=== PATIENT | male | born 1995 | race Two or more races ===

== ENCOUNTER 2021-11-29 08:50 | Emergency (ER) | payer MEDICAID, SELFPAY ==
--- NOTE | 2021-11-29 08:58 | XRR_ITS ---
PROCEDURE INFORMATION: Exam: XR Chest Exam date and time: 11/29/2021 9:49 AM Age: 25 years old Clinical indication: Fever TECHNIQUE: Imaging protocol: Radiologic exam of the chest. Views: 1 view. COMPARISON: No relevant prior studies available. FINDINGS: Lungs: Unremarkable. No consolidation. Pleural spaces: Unremarkable. No pleural effusion. No pneumothorax. Heart/Mediastinum: Unremarkable. No cardiomegaly. Bones/joints: Unremarkable. XR/XR chest 1V portable [id number] IMPRESSION: No acute findings.
[2021-11-29 09:09] VITALS: BP 104/64; PULSE 103; RESP 15; TEMP 39.4; O2SAT 99; BMI 23.0
[2021-11-29] MEDS: acetaminophen 325 mg Tablet 650 MG PO (09:23)
[2021-11-29 11:05] LABS: Basophils # 0.1 10^3/uL (0.0-0.1); Basophils % 0.4 %; Eosinophils % 0.1 %; Hematocrit 43.5 % (42.0-52.0); Hemoglobin 14.6 g/dL (11.7-16.6); Lymphocytes # 1.6 10^3/uL (0.8-4.8); Lymphocytes % 13.4 %; Mean Corpuscular HGB Conc 33.6 g/dL (30.0-36.0); Mean Corpuscular Hemoglobin 30.2 pg (28.0-34.0); Mean Corpuscular Volume 90.1 fl (80-94); Monocytes # 1.1 10^3/uL (0.2-0.9); Monocytes % 9.3 %; Neutrophils # 9.14 10^3/uL (1.8-7.7); Neutrophils % 76.3 %; Nucleated Red Blood Cells % 0 %; Platelet Count 196 10^3/cmm (130-400); Red Blood Count 4.83 10^6/uL (4.1-5.3); Red Cell Distribution Width 12.6 % (12.1-15.1)
[2021-11-29 11:21] LABS: Alanine Aminotransferase 21 U/L (0-41); Albumin Level 4.1 g/dL (3.5-5.2); Alkaline Phosphatase 92 U/L (40-130); Anion Gap 14.3 (5-19); Aspartate Amino Transferase 17 U/L (0-40); Blood Urea Nitrogen 5 mg/dL (6-20); Carbon Dioxide 25 mmol/L (22-29); Chloride 100 mmol/L (98-107); Globulin 3.3 g/dL (1.3-4.6); Glomerular Filtration Rate 117.8 mL/min (90-130); Glucose 108 mg/dL (65-115); Lipase 17 U/L (13-60); Osmolality Calculated 280 mOsm/kg (285-295); Potassium 3.3 mmol/L (3.5-5.1); Sodium 136 mmol/L (136-145); Total Bilirubin 0.5 mg/dL (0.15-1.2); Total Protein 7.4 g/dL (6.6-8.7)
[2021-11-29 11:51] LABS: Bilirubin Urine 1+ (Negative); Blood Urine Neg (Negative); Glucose Urine UA Norm (Normal); Ketones Urine 1+ (Negative); Nitrate Urine Negative (Negative); Protein Urine Trace (Negative); Specific Gravity, Urine 1.015 (1.005-1.030); Urine Appearance Clear (CLEAR); Urine Color Yellow (Yellow); pH Urine 5 (5-7)
[2021-11-29 11:52] LABS: Add Urine Culture? No; Add Urine Microscopic? YES; Bacteria Urine 1+ /hpf; Leukocyte Esterase Urine Negative (Negative); Mucus Urine 2+ /hpf; Urobilinogen Urine Norm (Negative)
[2021-11-29 12:22] VITALS: BP 103/63; PULSE 76; RESP 16; TEMP 37; O2SAT 99
--- NOTE | 2021-11-29 12:24 | W.ED.COVID ---
HPI - COVID General: Chief Complaint: Nausea/Vomiting/Diarrhea Stated Complaint: fever, n/v Time Seen by Provider: 11/29/21 11:22 History of Present Illness: 25-year-old male presents emergency room with fever temp 102.9 initially. He also has myalgias slight cough. Symptoms began yesterday. He has had some diarrhea with it as well. He has had some headache generalized malaise. No other else in his home has been sick his cough is dry nonproductive he denies any fever sweats chills mild abdominal discomfort. No anosmia. MD complaint: has COVID symptoms Prior covid testing: no COVID 19 common symptoms: positive fever(s), chills, cough, non-productive cough, dyspnea, fatigue, body aches, headache(s) and diarrhea; negative throat pain or nasal congestion COVID 19 other sytmptoms: negative chest pain Onset (ago): day(s) (1) Severity: mild Treatment prior to arrival: none COVID Results: No Data to Display Review of Systems Const: Reports: fever(s), chills, body aches and fatigue ENMT: Denies: throat pain, ear or mastoid pain, nasal discharge or nasal congestion Card: Denies: chest pain, edema, dyspnea on exertion or orthopnea Resp: Reports: dyspnea and non-productive cough GI: Reports: diarrhea : Denies: flank pain, dysuria, urinary frequency or urinary urgency Skin/Breast: Denies: rash or pruritus Neuro: Reports: headache(s) PFS ED PFSH: Medical History (Updated 11/29/21 @ 12:28 by Jone Pryor DO) No significant past medical history Surgical History (Updated 11/29/21 @ 12:26 by Jone Pryor DO) No significant past surgical history Social History (Updated 11/29/21 @ 12:26 by Jone Pryor DO) Smoking and tobacco status: never smoked Physical Exam Const: COMMON NORMALS: no acute distress GENERAL APPEARANCE: cooperative and comfortable ORIENTATION/CONSCIOUSNESS: Yes awake, Yes oriented to person, Yes oriented to place and Yes oriented to time HENMT: COMMON NORMALS: normocephalic, atraumatic and hearing grossly normal bilaterally HEAD & SCALP: normocephalic and atraumatic Resp: COMMON NORMALS: normal respiratory effort, No retractions, No use of accessory muscles and clear to auscultation bilaterally AUSCULTATION: clear to auscultation bilaterally Cardio: COMMON NORMALS: regular rate, regular rhythm and No murmurs present (Cardio) RATE: regular rate RHYTHM: regular rhythm GI: COMMON NORMALS: Soft to palpation and No hepatosplenomegaly present AUSCULTATION: Yes normoactive bowel sounds PALPATION: Yes Soft to palpation, No Tenderness to palpation present (GI), No Guarding due to palpation present (GI) and Yes No hepatosplenomegaly present Extremity: COMMON NORMALS: normal to inspection, capillary refill normal, no clubbing, cyanosis or edema, no calf tenderness and no pedal edema Neuro: SENSORIUM/ORIENTATION: Yes oriented to person, Yes oriented to place and Yes oriented to time Skin: COMMON NORMALS: no rashes or lesions noted GENERAL SKIN EXAM: no rashes or lesions noted Course Vital Signs: Vital signs: Vital Signs Temperature 98.6 F 11/29/21 12:22 Pulse Rate 76 11/29/21 12:22 Respiratory Rate 16 11/29/21 12:22 Blood Pressure 103/63 11/29/21 12:22 Pulse Oximetry 99 11/29/21 12:22 Oxygen Delivery Me thod 11/29/21 12:22 MDM - COVID Medical Decision Making Suspect patient has COVID based on his symptoms we will discharge him home and follow-up with results when they are available swab to be done prior to discharge. Supportive cares. Medical Records I reviewed the patient's medical records. Lab Data I reviewed the patient's lab results. : 11/29/21 10:55 11/29/21 10:55 Radiology Impressions Chest X-Ray 11/29/21 08:58 IMPRESSION: No acute findings. Laboratory Results WBC 12.0 10^3/uL (4.0-10.0) H 11/29/21 10:55 RBC 4.83 10^6/uL (4.1-5.3) 11/29/21 10:55 Hgb 14.6 g/dL (11.7-16.6) 11/29/21 10:55 Hct 43.5 % (42.0-52.0) 11/29/21 10:55 MCV 90.1 fl (80-94) 11/29/21 10:55 MCH 30.2 pg (28.0-34.0) 11/29/21 10:55 MCHC 33.6 g/dL (30.0-36.0) 11/29/21 10:55 RDW 12.6 % (12.1-15.1) 11/29/21 10:55 Plt Count 196 10^3/cmm (130-400) 11/29/21 10:55 MPV 10.0 fL (7.4-10.4) 11/29/21 10:55 Neut % (Auto) 76.3 % 11/29/21 10:55 Lymph % (Auto) 13.4 % 11/29/21 10:55 [place] % (Auto) 9.3 % 11/29/21 10:55 Eos % (Auto) 0.1 % 11/29/21 10:55 Baso % (Auto) 0.4 % 11/29/21 10:55 Neut # (Auto) 9.14 10^3/uL (1.8-7.7) H 11/29/21 10:55 Lymph # (Auto) 1.6 10^3/uL (0.8-4.8) 11/29/21 10:55 [place] # (Auto) 1.1 10^3/uL (0.2-0.9) H 11/29/21 10:55 Eos # (Auto) 0.0 10^3/uL (0.0-0.8) 11/29/21 10:55 Baso # (Auto) 0.1 10^3/uL (0.0-0.1) 11/29/21 10:55 Nucleated RBC % (auto) 0 % 11/29/21 10:55 Nucleated RBCs # 0.0 /100WBC 11/29/21 10:55 Sodium 136 mmol/L (136-145) 11/29/21 10:55 Potassium 3.3 mmol/L (3.5-5.1) L 11/29/21 10:55 Chloride 100 mmol/L (98-107) 11/29/21 10:55 Carbon Dioxide 25 mmol/L (22-29) 11/29/21 10:55 Anion Gap 14.3 (5-19) 11/29/21 10:55 BUN 5 mg/dL (6-20) L 11/29/21 10:55 Creatinine 0.8 mg/dL (0.7-1.2) 11/29/21 10:55 GFR Calculation 117.8 mL/min (90-130) 11/29/21 10:55 Glucose 108 mg/dL (65-115) 11/29/21 10:55 Calculated Osmolality 280 mOsm/kg (285-295) L 11/29/21 10:55 Calcium 9.0 mg/dL (8.5-10.5) 11/29/21 10:55 Total Bilirubin 0.5 mg/dL (0.15-1.2) 11/29/21 10:55 AST 17 U/L (0-40) 11/29/21 10:55 ALT 21 U/L (0-41) 11/29/21 10:55 Alkaline Phosphatase 92 U/L (40-130) 11/29/21 10:55 Total Protein 7.4 g/dL (6.6-8.7) 11/29/21 10:55 Albumin 4.1 g/dL (3.5-5.2) 11/29/21 10:55 Globulin 3.3 g/dL (1.3-4.6) 11/29/21 10:55 Lipase 17 U/L (13-60) 11/29/21 10:55 Urine Color Yellow (Yellow) 11/29/21 11:23 Urine Appearance Clear (CLEAR) 11/29/21 11:23 Urine pH 5 (5-7) 11/29/21 11:23 Ur Specific [place] 1.015 (1.005-1.030) 11/29/21 11:23 Urine Protein Trace (Negative) 11/29/21 11:23 Urine Glucose (UA) Norm (Normal) 11/29/21 11:23 Urine Ketones 1+ (Negative) H 11/29/21 11:23 Urine Blood Neg (Negative) 11/29/21 11:23 Urine Nitrate Negative (Negative) 11/29/21 11:23 Urine Bilirubin 1+ (Negative) H 11/29/21 11:23 Urine Urobilinogen Norm mg/dL (Negative) 11/29/21 11:23 Ur Leukocyte Esterase Negative (Negative) 11/29/21 11:23 Urine RBC None /hpf (0-2) 11/29/21 11:23 Urine WBC 5-10 /hpf (0-5) H 11/29/21 11:23 Ur Squamous Epith Cells None /hpf (0-5) 11/29/21 11:23 Amorphous Sediment Not Reportable 11/29/21 11:23 Urine Bacteria 1+ /hpf (NONE) H 11/29/21 11:23 Urine Mucus 2+ /hpf 11/29/21 11:23 No Data to Display Discharge Plan Discharge Patient Disposition: Home Clinical Impression: Suspected 2019 novel coronavirus infection Condition: Stable Discharge Orders: Discharge ED (Routine); Ordered 11/29/21 Ordered By: Jone Pryor Discharge Diet: Usual diet Discharge Activity: Resume usual activity Patient Instructions: COVID-19 (Coronavirus Disease 2019) (ED), Opioid Safety, Pain Management Activity Restrictions/Additional Instructions: Based on clinical exam she was suspected of COVID. Recommend self-isolation until results return we will call you with results when available. If having worsening symptoms follow-up. Coding Level of Care Code ED Profiling Machine Set Up Operator Tool for [employer] Fwd Exam Detailed
[2021-11-29 12:34] VITALS: BP 103/63; PULSE 82; RESP 16; TEMP 37; O2SAT 98
== END 2021-11-29 12:35 | disposition home or self-care (01) ==
PROVIDERS: Emergency Provider Family Medicine
DX: Z20.822 Contact with and (suspected) exposure to COVID-19 (principal)
CPT/HCPCS: 71045; 80053; 81001; 83690; 85025; 99284

== ENCOUNTER 2022-03-28 18:10 | Emergency (ER) | payer MEDICAID, SELFPAY ==
[2022-03-28 18:16] VITALS: BP 129/81; PULSE 74; RESP 14; TEMP 36.9; O2SAT 100; BMI 23.7
--- NOTE | 2022-03-28 18:26 | W.ED.WOUNDLC ---
HPI - Wound/Laceration General: Chief Complaint: Wound/Laceration Stated Complaint: right finger lac Time Seen by Provider: 03/28/22 18:24 History of Present Illness: Patient was opening a box with a knife and it slipped causing him to cut his fourth digit on the radial aspect. Normal range of motion. No sign of tendon injury. Patient cannot recall his last tetanus. Review of Systems Skin/Breast: Reports: new lesions [facility] ED PFSH: Medical History (Updated 03/28/22 @ 18:44 by DARSHANA Weber) No significant past medical history Surgical History (Updated 11/29/21 @ 12:26 by Jone Pryor DO) No significant past surgical history Social History (Updated 11/29/21 @ 12:26 by Jone Pryor DO) Smoking and tobacco status: never smoked Physical Exam Const: COMMON NORMALS: alert HENMT: COMMON NORMALS: normocephalic HEAD & SCALP: normocephalic Neck/C-Spine: COMMON NORMALS: full ROM Resp: COMMON NORMALS: normal respiratory effort and clear to auscultation bilaterally AUSCULTATION: clear to auscultation bilaterally Cardio: COMMON NORMALS: regular rate RATE: regular rate Extremity: COMMON NORMALS: full ROM RIGHT UPPER EXTREMITY: Yes hand & digits (1-1/2 cm laceration to the ring finger.) Right hand and digits: Yes inspection, Yes palpation and Yes ROM exam Neuro: SENSORIUM/ORIENTATION: Yes alert Procedures Laceration Laceration 1: Site: hand Side (If applicable): right Size (cm): 1.5 Description: linear Depth: simple, single layer Local Anesthetic: lidocaine 1% Amount of anesthesia used (mL): 1 Pre-repair: wound explored and irrigated extensively Skin layer closed with: nylon Size (cm): 4-0 Number of sutures: 2 Technique: horizontal mattress Course Vital Signs: Vital signs: Vital Signs Temperature 98.5 F 03/28/22 18:16 Pulse Rate 74 03/28/22 18:16 Respiratory Rate 14 03/28/22 18:16 Blood Pressure 129/81 03/28/22 18:16 Pulse Oximetry 100 03/28/22 18:16 Oxygen Delivery Me thod 03/28/22 18:16 MDM - Wound/Laceration Medical Decision Making Patient comes in for injury to the right ring finger. On exam there is a 1-1/2 cm gaping laceration to the proximal middle ring finger on the radial aspect. Normal range of motion. No signs of tendon injury or foreign body or fracture. Differential diagnosis includes laceration, foreign body, fracture. No signs of serious injury is noted. Wound was irrigated and cleaned and approximated to horizontal mattress sutures. Patient tolerated well. Discharge Plan Discharge Patient Disposition: Home Clinical Impression: Need for [id number] (Tdap) vaccine Finger laceration Qualifiers: Encounter type: initial encounter Finger: ring finger Damage to nail status: without damage Foreign body presence: without foreign body Laterality: right Qualified Code(s): S61.214A - Laceration without foreign body of right ring finger without damage to nail, initial encounter Condition: Stable Discharge Orders: Discharge ED (Routine); Ordered 03/28/22 Ordered By: Umesh Merlos Discharge Diet: Usual diet Discharge Activity: Increase activity as tolerated Patient Instructions: Finger Laceration (ED) Activity Restrictions/Additional Instructions: Keep wound clean and dry as possible. It is important keep the wound as dry as possible for the next 48 hours. This allows the top layer of skin to close completely. Monitor for signs of infection such as redness greater than 1 fingers breath away from the wound. Follow-up with primary care as needed. Sutures need to come out in 7 days. Return to ER as needed for signs of infection, uncontrolled pain, or fever greater than 100.4. Coding Level of Care Code ED Business Objects Report Developer for Jonathan Sharma
[2022-03-28] MEDS: tetanus-dipt-pertussis 0.5 mL SDV IM (18:59)
--- NOTE | 2022-04-05 12:24 | PC.NURSE ---
pt presents to er with have sutures removed. 2 sutures removed. wound is intact and appears it is healing.
== END 2022-03-28 18:56 | disposition home or self-care (01) ==
PROVIDERS: Emergency Provider Nurse Practitioner Family
DX: S61.214A Laceration without foreign body of right ring finger without damage to nail, initial encounter (principal); Z23 Encounter for immunization; W26.0XXA Contact with knife, initial encounter
CPT/HCPCS: 12001; 90471; 90715; 99283

== ENCOUNTER 2023-01-02 07:08 | Outpatient (CLI) | payer MEDICAID, SELFPAY ==
[2023-01-02 08:16] LABS: Sperm Present Sperm Not Present
== END 2023-01-02 07:09 | disposition home or self-care (01) ==
PROVIDERS: PCP Family Medicine; Visit Provider Urology
DX: Z98.52 Vasectomy status (principal)
CPT/HCPCS: 89310

== ENCOUNTER → 2024-01-05 13:57 | Outpatient (BNVA) | payer MEDICAID, SELFPAY | PROVIDERS: PCP Family Medicine; Visit Provider Emergency Medicine | DX: J02.9 Acute pharyngitis, unspecified (principal) | CPT/HCPCS: 87880 ==